=== PATIENT | female | born 1970 | race Caucasian/White ===

== ENCOUNTER 2016-12-06 03:11 | Emergency (ER) | payer BC ==
[2016-12-06] MEDS ORDERED: TORAdol 30 mg Injection IM ONE (03:28)
--- NOTE | 2016-12-06 03:28 | ERPHSYRPT ---
- History of Present Illness Time Seen by Provider: 12/06/16 03:23 Source: patient Exam Limitations: no limitations Physician History: pt has 1-2 day history of right elbow pain tender to touch medial epicondyle- no erythema or effusion or bursitis - unable to extend without pain no hx trauma or gout , but has diabetes; Occurred: yesterday Method of Injury: unknown Quality: constant, sharpness Severity of Pain-Max: moderate Severity of Pain-Current: moderate Extremities Pain Location: elbow: right Allergies/Adverse Reactions: Penicillins Allergy (Verified 12/06/16 03:34) Rash Home Medications: Glipizide 0 mg PO DAILY 12/06/16 [History] Levothyroxine Sodium 25 Mcg [Synthroid 25 Mcg] 0 mg DAILY 12/06/16 [ History] Metformin HCl 850 mg [Glucophage 850 MG] 1 tab BID 12/06/16 [History] Hx Tetanus, Diphtheria Vaccination/Date Given: Yes Hx Influenza Vaccination/Date Given: No Hx Pneumococcal Vaccination/Date Given: No - Review of Systems Constitutional: No Fever, No Chills Eyes: No Symptoms Ears, Nose, & Throat: No Symptoms Respiratory: No Cough, No Dyspnea Cardiac: No Chest Pain, No Edema, No Syncope Abdominal/Gastrointestinal: No Abdominal Pain, No Nausea, No Vomiting, No Diarrhea Genitourinary Symptoms: No Dysuria Musculoskeletal: Joint Pain, No Back Pain, No Neck Pain, No Fall, No Joint Redness, No Joint Swelling Skin: No Rash Neurological: No Dizziness, No Focal Weakness, No Sensory Changes Psychological: No Symptoms Endocrine: No Symptoms All Other Systems: Reviewed and Negative - Past Medical History Pertinent Past Medical History: Yes Neurological History: No Pertinent History ENT History: No Pertinent History Cardiac History: No Pertinent History Respiratory History: No Pertinent History Endocrine Medical History: Diabetes Type II, Hypothyroidism Musculoskeletal History: Arthritis Other Medical History: fractured collar bone and toe - Past Surgical History Past Surgical History: Yes Musculoskeletal: Other (several carpal tunnel surgeries) Other Surgical History: carpal tunnel, benign tumor removed from lip - Social History Smoking Status: Never smoker Exposure to second hand smoke: No Drug Use: none Patient Lives Alone: Yes - Nursing Vital Signs Nursing Vital Signs: Pain Scale Pain Intensity 8 - Physical Exam General Appearance: no apparent distress, alert Eyes, Ears, Nose, Throat Exam: moist mucous membranes Neck Exam: non-tender, supple Cardiovascular/Respiratory Exam: chest non-tender, normal breath sounds, regular rate/rhythm, no respiratory distress Abdominal Exam: non-tender, No guarding Back Exam: normal inspection, No vertebral tenderness Shoulder Exam: normal inspection, non-tender, no evidence of injury, normal ROM Elbow/Forearm Exam: normal inspection, no evidence of injury, limited ROM, pain , soft tissue tenderness Wrist Exam: normal inspection, non-tender, no evidence of injury, normal ROM Hand Exam: normal inspection, non-tender, no evidence of injury, normal ROM DTR - Upper Extremity Exam: bicep (R): 2+, bicep (L): 2+, tricep (R): 2+, tricep (L): 2+ Neuro/Tendon Exam: normal sensation, normal motor functions Mental Status Exam: alert, oriented x 3, cooperative Skin Exam: normal color, warm, dry - Course Nursing assessment & vital signs reviewed: Yes - Radiology Exams Right Elbow X-ray Interpretation: Reviewed by me, No Fracture, Other (calcium deposit in bursa) Ordered Tests: Active Orders 24 hr Category Date Time Status ELBOW (MINIMUM 3 VIEWS) Stat Exams 12/06/16 03:28 Taken CBCD [CBC W DIFF] Stat Lab 12/06/16 03:50 Completed CMP Stat Lab 12/06/16 03:50 Completed Manual Differential NC Stat Lab 12/06/16 03:50 Completed SED RATE [Erythrocyte Sedimentation Rate] Stat Lab 12/06/16 03:50 Completed Medication Summary Discontinued Medications Generic Name Dose Route Start Last Admin Trade Name Breezyq PRN Reason Stop Dose Admin Ketorolac Tromethamine 60 mg 12/06/16 03:28 12/06/16 03:53 Toradol 30 Mg Injection IM 12/06/16 03:29 60 mg STAT ONE Administration Ketorolac Tromethamine Confirm 12/06/16 03:51 Toradol 30 Mg Injection Administered 12/06/16 03:52 Dose 60 mg .ROUTE .ST-MED ONE Lab/Rad Data: Laboratory Result Diagrams 12/06/16 03:50 12/06/16 03:50 Laboratory Results 12/06/16 12/06/16 12/06/16 Range/Units 03:50 03:50 03:50 WBC 12.1 H (4.0-10.5) K/mm3 RBC 5.07 (4.1-5.4) M/mm3 Hgb 10.6 L (12.0-16.0) gm/dl Hct 34.6 L (35-47) % MCV 68.2 L (78-100) fl MCH 20.9 L (26-32) pg MCHC 30.6 L (32-36) g/dl RDW 20.4 H (11.5-14.0) % Plt Count 405 (150-450) K/mm3 MPV 9.1 (6-9.5) fl ESR 22 H (0-20) mm/hr Sodium 137 (136-145) mEq/L Potassium 3.5 (3.5-5.1) mEq/L Chloride 101 (98-107) mEq/L Carbon Dioxide 24.5 (21-32) mEq/L Anion Gap 14.6 (5-15) MEQ/L BUN 23 H (9-20) mg/dL Creatinine 0.88 (0.55-1.30) mg/dl Estimated GFR > 60 ML/MIN Glucose 84 (70-110) MG/DL Calcium 9.1 (8.5-10.1) mg/dL Total Bilirubin 0.20 (0.2-1.0) mg/dL AST 25 (15-37) U/L ALT 46 (12-78) U/L Alkaline Phosphatase 87 (46-116) U/L Serum Total Protein 7.9 (6.4-8.2) gm/dL Albumin 3.7 (3.4-5.0) g/dL - Progress Progress: improved, re-examined Progress Note: 12/06/16 04:25 discussed risk/bebefit of steroid pulse with DM and pt wishes to proceed; Counseled pt/family regarding: lab results, diagnosis, need for follow-up, rad results - Departure Time of Disposition: 04:25 Departure Disposition: Home Clinical Impression: Medial epicondylitis, right elbow Condition: Good Critical Care Time: No Referrals: SAJAN PATEL [Primary Care Provider] - Instructions: Medial Epicondylitis Additional Instructions: the blood count and sed rate are slightly elevated which are nonspecific indicators for both infection and inflammation. THe sed rate does not indicate a more serious bone infection such as osteomyelitis occurring in Diabetes; there is no effusion to drain for testing or culture and no outward indication for infection , but as we discussed and agreed we will treat for low grade infection as well as inflammation . there is tenderness of the epicondyle which is a common result of repetitive motion injury. followup with your doctor and return if not improving. local injections may be required; also return if redness or swelling noted which may indicate infection. Prescriptions: Cephalexin Mh 500 mg [Keflex 500 mg] 500 mg PO TID #30 capsule Hydrocodone/Acetaminophen [Gile 5-325 Tablet] 1 each PO Q4-6HPRN PRN #14 tablet PRN Reason: Pain Prednisone 10 mg [Deltasone 10 mg] 10 mg PO UD #20 tablet
[2016-12-06] MEDS ORDERED: TORAdol 30 mg Injection ONE (03:51)
[2016-12-06 03:56] LABS: Mean Cell Volume 68.2 fl (78-100); Mean Corpuscular Hemoglobin 20.9 pg (26-32); Mean Platelet Volume 9.1 fl (6-9.5); Platelet Count 405 K/mm3 (150-450); Red Blood Count 5.07 M/mm3 (4.1-5.4); Red Cell Distribution Width 20.4 % (11.5-14.0); White Blood Count 12.1 K/mm3 (4.0-10.5)
[2016-12-06 04:16] LABS: ALBUMIN 3.7 g/dL (3.4-5.0); ALKALINE PHOSPHATASE 87 U/L (46-116); ANION GAP 14.6 MEQ/L (5-15); BLOOD UREA NITROGEN 23 mg/dL (9-20); CHLORIDE 101 mEq/L (98-107); Carbon Dioxide 24.5 mEq/L (21-32); Glucose 84 MG/DL (70-110); Potassium 3.5 mEq/L (3.5-5.1); SGOT/AST 25 U/L (15-37); SGPT/ALT 46 U/L (12-78); SODIUM 137 mEq/L (136-145); Total Protein 7.9 gm/dL (6.4-8.2)
[2016-12-06] MEDS ORDERED: DELTASONE 20 MG PO ONE (04:38)
[2016-12-06] MEDS ORDERED: KEFLEX 500 MG PO ONE (04:38)
[2016-12-06] MEDS ORDERED: KEFLEX 500 MG ONE (04:50)
[2016-12-06] MEDS ORDERED: DELTASONE 20 MG ONE (04:50)
[2016-12-06 04:57] LABS: Platelet Estimate NORMAL (NORMAL); Total Cells Counted 100
[2016-12-06 04:58] LABS: ANISOCYTOSIS 1+; Microcytosis 1+
[2016-12-06 04:59] VITALS: BP 126/75; PULSE 62; O2SAT 96
--- NOTE | 2016-12-06 11:02 | XRAY ---
Indication: Pain. Decreased range of motion. No known injury. Comparison: None 3 views of the right elbow demonstrates medial/lateral epicondyle heterotopic ossifications either degenerative versus old injury/inflammation. No other bony, articular, or soft tissue abnormalities.
== END 2016-12-06 05:33 | disposition home or self-care (01) ==
LOC: ED 03:11
DX: M77.01 Medial epicondylitis, right elbow (principal); E03.9 Hypothyroidism, unspecified; E11.9 Type 2 diabetes mellitus without complications; Z79.84 Long term (current) use of oral hypoglycemic drugs; Z79.899 Other long term (current) drug therapy
CPT/HCPCS: 36415; 73080; 80053; 85025; 85652; 99282; 99284; J1885; A9270-GY; J7506

== ENCOUNTER 2017-04-09 17:26 | Emergency (ER) | payer BC ==
[2017-04-09 19:11] VITALS: BP 167/84; PULSE 72; O2SAT 99
[2017-04-09] MEDS ORDERED: Norflex 60 MG/2 ML IM ONE (19:18)
[2017-04-09] MEDS ORDERED: TORAdol 30 mg Injection IM ONE (19:18)
[2017-04-09] MEDS ORDERED: TORAdol 30 mg Injection ONE (19:23)
[2017-04-09] MEDS ORDERED: Norflex 60 MG/2 ML ONE (19:23)
--- NOTE | 2017-04-09 19:23 | ERPHSYRPT ---
- History of Present Illness Time Seen by Provider: 04/09/17 19:19 Source: patient Exam Limitations: no limitations Patient Subjective Stated Complaint: Pt states "I have been dealing with this for awhile now. My right hip really hurts. It is getting really bad." Triage Nursing Assessment: Pt alert and oriented X 3, skin pwd. Pt ambulaties with an upright steady gait, able to speak in clear full sentences. Physician History: c/o pain in right hip, denies any injury, has problem for long time off and on, recent x ray done in october, Method of Injury: unknown Quality: intermittent Severity of Pain-Max: mild Severity of Pain-Current: moderate Lower Extremities Pain: hip: right Modifying Factors: Improves With: nothing Associated Symptoms: none Allergies/Adverse Reactions: Penicillins Allergy (Verified 12/06/16 03:34) Rash Home Medications: Glipizide 0 mg PO DAILY 12/06/16 [History] Levothyroxine Sodium 25 Mcg [Synthroid 25 Mcg] 25 mcg PO DAILY 12/06/16 [ History] Metformin HCl 850 mg [Glucophage 850 MG] 1 tab PO BID 12/06/16 [History] Hx Tetanus, Diphtheria Vaccination/Date Given: No Hx Influenza Vaccination/Date Given: No Hx Pneumococcal Vaccination/Date Given: No Immunizations Up to Date: Yes - Review of Systems Constitutional: No Symptoms Eyes: No Symptoms Musculoskeletal: Joint Pain (right hip), No Deformity, No Fall, No Joint Swelling Skin: No Symptoms - Past Medical History Pertinent Past Medical History: Yes Neurological History: No Pertinent History ENT History: No Pertinent History Cardiac History: No Pertinent History Respiratory History: No Pertinent History Endocrine Medical History: Diabetes Type II, Hypothyroidism Musculoskeletal History: Osteoarthritis Other Medical History: fractured collar bone and toe - Past Surgical History Past Surgical History: Yes Musculoskeletal: Other Female Surgical History: Hysterectomy Other Surgical History: carpal tunnel, benign tumor removed from lip. hysterectomy - Social History Smoking Status: Never smoker Exposure to second hand smoke: No Drug Use: none Patient Lives Alone: Yes - Female History Hx Last Menstrual Period: hysterectomy Hx Now: No - Nursing Vital Signs Nursing Vital Signs: Initial Vital Signs Temperature 98.1 F 04/09/17 19:06 Pulse Rate 72 04/09/17 19:06 Respiratory Rate 16 04/09/17 19:06 Blood Pressure 167/84 12/22/17 19:06 O2 Sat by Pulse Oximetry 99 04/09/17 19:06 Pain Scale Pain Intensity 7 - Physical Exam General Appearance: no apparent distress Hips Exam: right: pain, soft tissue tenderness, bilateral: non-tender, normal inspection, normal range of motion, no evidence of injury, bone tenderness, deformity, ecchymosis, limited range of motion, nodules, swelling, other SpO2: 99 Oxygen Delivery: Room Air - Course Nursing assessment & vital signs reviewed: Yes Ordered Tests: Medication Summary Discontinued Medications Generic Name Dose Route Start Last Admin Trade Name Breezyq PRN Reason Stop Dose Admin Ketorolac Tromethamine 60 mg 04/09/17 19:18 04/09/17 19:24 Toradol 30 Mg Injection IM 04/09/17 19:19 60 mg STAT ONE Administration Ketorolac Tromethamine Confirm 04/09/17 19:23 Toradol 30 Mg Injection Administered 04/09/17 19:24 Dose 60 mg .ROUTE .STK-MED ONE Orphenadrine Citrate 60 mg 04/09/17 19:18 04/09/17 19:24 Norflex 60 Mg/2 Ml IM 04/09/17 19:19 60 mg STAT ONE Administration Orphenadrine Citrate Confirm 04/09/17 19:23 Norflex 60 Mg/2 Ml Administered 04/09/17 19:24 Dose 60 mg .ROUTE .STK-MED ONE - Progress Progress: improved, pain not gone completely Counseled pt/family regarding: diagnosis, need for follow-up - Departure Time of Disposition: 19:33 Departure Disposition: Home Clinical Impression: Chronic right hip pain Condition: Stable Critical Care Time: No Referrals: SAJAN PATEL [Primary Care Provider] - Additional Instructions: SPRAINS/STRAINS/CONTUSIONS 1. Rest the affected area as much as possible for the next few days. 2. Apply ice to the affected area for 20-30 minutes at a time, several times a day. 3. If you receive an elastic wrap, wear it only while awake for comfort and support. Re-wrap the elastic wrap if it feels too tight or too loose. 4. If swelling is present, elevate the affected part above the level of the heart for at least 2 to 3 days. 5. Use splints, slings, or crutches as instructed. 6. Watch for severe swelling, coldness, numbness, and discoloration of the fingers and toes. See your family physician or return to the emergency department if any of these are noted. Please follow the instructions given to you. Please take your medication as prescribed if given. If symptoms recur or get worse, come back to the emergency room if you cannot reach your primary care physician, or call your primary care physician for an appointment. Again if your symptoms get worse, come back to the emergency room. Thanks for visiting emergency room, and let us take care of you. Forms: Work/School Release Form Prescriptions: Cyclobenzaprine HCl 10 mg [Flexeril 10 MG] 10 mg PO TID #30 tablet Indomethacin 25 mg [Indocin 25 MG] 25 mg PO TID #30 capsule
== END 2017-04-09 19:50 | disposition home or self-care (01) ==
LOC: ED 17:26
DX: M25.551 Pain in right hip (principal); E11.9 Type 2 diabetes mellitus without complications; E03.9 Hypothyroidism, unspecified; Z79.84 Long term (current) use of oral hypoglycemic drugs; Z79.899 Other long term (current) drug therapy
CPT/HCPCS: 96372; 99284; J1885; J2360